=== PATIENT | male | born 1970 | race Caucasian/White ===

== ENCOUNTER 2017-07-30 10:56 | Emergency (ER) | payer MEDICAID, OTHER ==
[~2017-07-30] VITALS: Wt 99.8 kg
[~2017-07-30 10:56] MED LIST: IBUP-725
[2017-07-30] MEDS ORDERED: OXYC-279 PO (13:03)
[2017-07-30] MEDS ORDERED: ALPR2TAB7 PO (13:03)
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
== END 2017-07-30 13:28 | disposition home or self-care (01) ==
LOC: FTE 10:56
DX: Z76.0 Encounter for issue of repeat prescription (principal); M25.511 Pain in right shoulder; G40.909 Epilepsy, unspecified, not intractable, without status epilepticus; F17.210 Nicotine dependence, cigarettes, uncomplicated
CPT/HCPCS: 99281